=== PATIENT | female | born 1950 | race Caucasian/White ===

== ENCOUNTER → 2017-03-08 | Outpatient (CLI) | payer MEDICARE, BC ==
[2017-03-08 12:18] LABS: Basophils % (A) 0 %; CH 35.5; CHCM 33.9; Eosinophils # (A) 0.1 k/uL (0-0.7); Eosinophils % (A) 1 %; HCT 38.5 % (34.0-46.0); HDW 1.99; HGB 13.1 gm/dL (11.4-16.0); Luc # (Auto) 0.08; Luc % (Auto) 1; Lymphocytes # (A) 0.6 k/uL (1.0-4.8); Lymphocytes % (A) 6 %; MCH 35.8 pg (25.0-35.0); MCHC 34.1 g/dL (31.0-37.0); Macrocytosis Slight; Mean Platelet Volume 7.5; Monocytes # (A) 0.2 k/uL (0-1.0); Monocytes % (A) 2 %; Neutrophils # (A) 8.4 k/uL (1.3-7.7); Neutrophils % (A) 89 %; RBC 3.66 m/uL (3.80-5.40); RDW 11.9 % (11.5-15.5); WBC 9.4 k/uL (3.8-10.6); WBC (Perox) 10.28
[2017-03-08 12:47] LABS: ALT 31 U/L (9-52); AST 30 U/L (14-36); Alkaline Phosphatase 45 U/L (38-126); Anion Gap 11 mmol/L; Blood Urea Nitrogen 20 mg/dL (7-17); Carbon Dioxide 29 mmol/L (22-30); Chloride 96 mmol/L (98-107); Cholesterol 202 mg/dL (<200); Glucose 115 mg/dL (74-99); Non-African American GFR(MDRD) >60 (>60 ml/min/1.73 sqM); Potassium 4.6 mmol/L (3.5-5.1); Sodium 136 mmol/L (137-145); Total Bilirubin 1.4 mg/dL (0.2-1.3); Total Protein 7.3 g/dL (6.3-8.2)
[2017-03-08 13:18] LABS: HDL Cholesterol 120 mg/dL (40-60)
== END | disposition home or self-care (01) ==
LOC: LABWHC1 11:48
PROVIDERS: ATTEND Internal Medicine
DX: E78.5 Hyperlipidemia, unspecified (principal); I10 Essential (primary) hypertension
CPT/HCPCS: 36415; 80053; 80061; 84439; 84443; 85025

== ENCOUNTER 2017-05-31 15:02 | Emergency (ER) | payer MEDICARE, BC ==
[2017-05-31 15:18] VITALS: BP 177/76; PULSE 109; RESP 16; TEMP 97.9
--- NOTE | 2017-05-31 15:35 | ED ---
General Adult HPI - General Chief complaint: Fall Stated complaint: fall/head injury Time Seen by Provider: 05/31/17 15:22 Source: patient, RN notes reviewed Mode of arrival: wheelchair Limitations: no limitations - History of Present Illness Initial comments: Chief complaint and history of present illness is a 67-year-old female here with a complaint of having fallen yesterday after leaving a restaurant. Patient reports that she just tripped falling for under her knees and then felt under her face. She did not get her hands out and time. She presents today with ecchymosis around the left eye. She denies any loss of consciousness at the time. Denies any nausea vomiting or any neuro deficits. - Related Data Home Medications Medication Instructions Recorded Confirmed Albuterol Inhaler [Ventolin Hfa 1 - 2 puff INHALATION RT-Q6H PRN 05/31/17 Inhaler] Calcium Carbonate [Calcium] 600 mg PO DAILY 05/31/17 05/31/17 Calcium Polycarbophil [Fibercon] 625 mg PO DAILY 05/31/17 05/31/17 Enalapril Maleate [Vasotec] 10 mg PO DAILY 05/31/17 05/31/17 Fluticasone/Salmeterol [Advair 1 inhalation PO RT-BID 05/31/17 05/31/17 250-50 Diskus] Previous Rx's Medication Instructions Recorded Ibuprofen [Motrin] 600 mg PO Q6HR PRN #20 tab 05/31/17 Allergies Allergy/AdvReac Type Severity Reaction Status Date / Time No Known Allergies Allergy Verified 05/31/17 15:53 Review of Systems ROS Statement: Those systems with pertinent positive or pertinent negative responses have been documented in the HPI. review of systems no headache and no neck pain. No decrease problems with visual acuity. Patient does wear glasses. She presents with painless mild swelling and ecchymosis around the left eye. No jaw pain teeth are intact. Again denies any neck pain. No chest pain shows breath GI/ problems. No neuro deficits. All systems are reviewed.Past medical problems significant for COPD and hypertension. 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 Remains cancer free. Patient's family history mother had lung cancer. Patient denies any ALLERGIES she does smoke strongly encouraged to stop drink alcohol socially. ROS Other: All systems not noted in ROS Statement are negative. Past Medical History Past Medical History: COPD, Hypertension History of Any Multi-Drug Resistant Organisms: None Reported Past Surgical History: Cholecystectomy Additional Past Surgical History / Comment(s): breast reduction Past Psychological History: No Psychological Hx Reported Smoking Status: Current every day smoker Past Alcohol Use History: Abuse, Daily Past Drug Use History: None Reported General Exam - General Exam Comments Initial Comments: General: The patient is awake and alert, patient stumbled and fell yesterday presents today with ecchymosis around her left eye. Vital signs temperature 97.9 pulse 109 respiratory rate 16 pulse ox 96 and room air blood pressure 177/76. Eye: Pupils are equal, round and reactive to light, extra-ocular movements are intact ; there is normal conjunctiva bilaterally. No signs of icterus. patient has ecchymosis around the left eye. Extraocular movements are within normal limits. Patient is wearing glasses denies any change in visual acuity. No hyphema. No signs of conjunctival hemorrhage. Ears, nose, mouth and throat: There are moist mucous membranes and no oral lesions. teeth are intact. No TMJ pain. Neck: The neck is supple, there is no tenderness,full range of motion and no complaints of any neck pain. Cardiovascular: There is a regular rate and rhythm. No murmur, rub or gallop is appreciated. Respiratory: history of COPD, heavy smoker. No rales at this time. Patient encouraged to stop smoking.. Gastrointestinal: no abdominal pain. No difficulty urinating or bowel movements. Back: denies backache. Musculoskeletal: full range of motion upper and lower extremities. No complaint of pain. Neurological: CN II-XII intact, There are no obvious motor or sensory deficits. Coordination appears grossly intact. Speech is normal.no focal or lateralizing findings. Skin: Skin is warm and dry and no rashes or lesions are noted. Psychiatric: Cooperative, appropriate mood & affect, normal judgment. Limitations: no limitations Course Vital Signs 05/31/17 15:14 Temperature 97.9 F Pulse Rate 109 H Respiratory 16 Rate Blood Pressure 177/76 O2 Sat by Pulse 96 Oximetry Medical Decision Making - Medical Decision Making CT of the facial bones were done and reviewed by the radiologist. His final impression is minimal left supraorbital and left cheek soft tissue prominence can be compatible with contusion. As read by Dr. Pearson the patient will be advised to apply cold compress even today. Then warm compresses starting tomorrow. Ibuprofen for discomfort. She's report any visual acuity changes, headache or neuro deficits to the emergency room or family doctor. Again strongly encouraged to stop smoking. Disposition Clinical Impression: Fall, Contusion of left eyelid and periocular area Disposition: HOME SELF-CARE Condition: Stable Instructions: Fall Prevention for Older Adults (ED), Facial Contusion (ED) Additional Instructions: Continue to apply ice even today. Warm compresses starting tomorrow. Ibuprofen for pain. Report any changes to her family doctor or the emergency room. Stop smoking. Prescriptions: Ibuprofen [Motrin] 600 mg PO Q6HR PRN #20 tab PRN Reason: Pain Referrals: Jenifer Reed MD [Primary Care Provider] - 1-2 days Time of Disposition: 16:08
--- NOTE | 2017-05-31 15:58 | CT ---
EXAMINATION TYPE: CT facial bones wo con DATE OF EXAM: 05/31/2017 COMPARISON: NONE HISTORY: Left sided orbital bruising post fall yesterday CT DLP: 547 mGycm CONTRAST: None The paranasal sinuses are examined in the axial plane at 2 mm thick sections. Reconstructed images i n the coronal plane were obtained. There is dental amalgam scatter artifact Small retention cyst within the anterior right maxillary sinus. The ethmoid air cells are clear. Th e sphenoid sinuses are clear. Left frontal sinus is clear. Right frontal sinus is aplastic. The septum is evaluated. There is septal deviation to the left. The ostiomeatal units are patent. There is a large right ike bullosa. The globes are symmetrical. Intraconal and extraconal fat is unremarkable. Extraocular muscles are no rmal. Lacrimal gland regions appear normal. Some minimal soft tissue swelling is over the left frontal region in left supraorbital region. Some m ild soft tissue swelling is over the left cheek. Maxillary spine is intact. Nasal bones appear intact. Greater wings of sphenoid are normal. Zygomatic arches are intact. IMPRESSIONS: 1. Minimal left supraorbital and left cheek soft tissue prominence can be compatible with contusion.
== END 2017-05-31 16:19 | disposition home or self-care (01) ==
LOC: EC 15:02
DX: S00.12XA Contusion of left eyelid and periocular area, initial encounter (principal); I10 Essential (primary) hypertension; J44.9 Chronic obstructive pulmonary disease, unspecified; F17.200 Nicotine dependence, unspecified, uncomplicated; Z79.51 Long term (current) use of inhaled steroids; Z79.899 Other long term (current) drug therapy; W01.198A Fall on same level from slipping, tripping and stumbling with subsequent striking against other object, initial encounter; Y93.01 Activity, walking, marching and hiking
CPT/HCPCS: 70486; 99283

== ENCOUNTER 2018-07-14 18:06 | Inpatient (IN) | payer MEDICARE, BC ==
[2018-07-14] MEDS ORDERED: FUROSEMIDE 10 MG/ML 4 ML VIAL IV STA (19:02)
--- NOTE | 2018-07-14 19:04 | ED ---
SOB HPI - General Source: patient, family Mode of arrival: wheelchair Limitations: no limitations <Lynnette Conrad - Last Filed: 07/15/18 00:16> <Nasrin Wong - Last Filed: 07/17/18 09:06> - General Chief Complaint: Shortness of Breath Stated Complaint: leg swelling Time Seen by Provider: 07/14/18 18:46 - History of Present Illness Initial Comments: 68-year-old female patient with past medical history significant for chronic alcohol abuse, congestive heart failure, COPD presents to the emergency department today for evaluation of shortness of breath and bilateral lower extremity edema. Patient states that for the last several days she has noticed increase in swelling and difficulty breathing. States she is unable to lie flat. States that she does become dyspneic with any activity. States that she moved up here about 6 months ago and has not yet established with a primary care physician. States she was admitted in May for episode of congestive heart failure and once her medications she was unable to get them refilled. States that she does have a cough with clear sputum production. She denies any fevers or chills. Denies any nasal congestion or sore throat. Patient denies any recent rash, chest pain, abdominal pain, nausea, vomiting, diarrhea, constipation, back pain, numbness, tingling, dizziness, weakness, hematuria, dysuria, urinary urgency, urinary frequency, headache, visual changes, or any other complaints. (Lynnette Conrad) - Related Data Home Medications Medication Instructions Recorded Confirmed No Known Home Medications 07/14/18 07/14/18 Allergies Allergy/AdvReac Type Severity Reaction Status Date / Time No Known Allergies Allergy Verified 07/14/18 18:43 Review of Systems ROS Other: All systems not noted in ROS Statement are negative. <Lynnette Conrad - Last Filed: 07/15/18 00:16> ROS Other: All systems not noted in ROS Statement are negative. <Nasrin Wong - Last Filed: 07/17/18 09:06> ROS Statement: Those systems with pertinent positive or pertinent negative responses have been documented in the HPI. Past Medical History Past Medical History: COPD, Hypertension History of Any Multi-Drug Resistant Organisms: None Reported Past Surgical History: Cholecystectomy Additional Past Surgical History / Comment(s): breast reduction Past Psychological History: No Psychological Hx Reported Smoking Status: Current every day smoker Past Alcohol Use History: Abuse, Daily Past Drug Use History: None Reported <Lynnette Conrad Jacey - Last Filed: 07/15/18 00:16> General Exam Limitations: no limitations General appearance: alert, in no apparent distress, other (This is a well- developed, well-nourished adult female patient in no acute distress. Vital signs upon presentation are temperature 98.1F, pulse 101, respirations 20, blood pressure 178/93, pulse ox 91% on room air.) Eye exam: Present: normal appearance, PERRL, EOMI. Absent: scleral icterus, conjunctival injection, periorbital swelling ENT exam: Present: normal exam, normal oropharynx, mucous membranes moist Respiratory exam: Present: decreased breath sounds (Decreased breath sounds all lung gilmore posteriorly). Absent: normal lung sounds bilaterally, respiratory distress, wheezes, rales, rhonchi, stridor Cardiovascular Exam: Present: normal rhythm, tachycardia, normal heart sounds. Absent: systolic murmur, diastolic murmur, rubs, gallop, clicks GI/Abdominal exam: Present: soft, normal bowel sounds. Absent: distended, tenderness, guarding, rebound, rigid Extremities exam: Present: full ROM, normal capillary refill, other (Bilateral lower extremity edema, 2+ pitting involving the lower legs and feet.). Absent: normal inspection, tenderness, pedal edema, joint swelling, calf tenderness Neurological exam: Present: alert, oriented X3, CN II-XII intact Psychiatric exam: Present: normal affect, normal mood Skin exam: Present: warm, dry, intact, normal color. Absent: rash <Lynnette Conrad M - Last Filed: 07/15/18 00:16> Vital Signs 07/14/18 07/14/18 07/14/18 18:30 19:30 19:40 Temperature 98.1 F Pulse Rate 101 H 91 92 Pulse Rate [ Pulse Oximetery ] Respiratory 20 21 20 Rate Blood Pressure 178/93 187/93 Blood Pressure [Left Arm] O2 Sat by Pulse 91 L Oximetry 07/14/18 07/14/18 07/14/18 20:50 21:10 21:40 Temperature Pulse Rate 92 93 87 Pulse Rate [ Pulse Oximetery ] Respiratory 19 20 15 Rate Blood Pressure 177/99 175/100 180/90 Blood Pressure [Left Arm] O2 Sat by Pulse 96 95 96 Oximetry 07/14/18 07/14/18 07/14/18 22:10 23:10 23:40 Temperature Pulse Rate 93 71 104 H Pulse Rate [ Pulse Oximetery ] Respiratory 19 16 14 Rate Blood Pressure 169/99 172/93 161/92 Blood Pressure [Left Arm] O2 Sat by Pulse 97 97 97 Oximetry 07/14/18 07/15/18 07/15/18 23:58 00:07 01:10 Temperature Pulse Rate 83 85 98 Pulse Rate [ Pulse Oximetery ] Respiratory 19 Rate Blood Pressure 172/85 Blood Pressure [Left Arm] O2 Sat by Pulse 93 L Oximetry 07/15/18 01:20 Temperature 97.9 F Pulse Rate Pulse Rate [ 104 H Pulse Oximetery ] Respiratory 16 Rate Blood Pressure Blood Pressure 187/82 [Left Arm] O2 Sat by Pulse 92 L Oximetry Medical Decision Making - Lab Data Result diagrams: 07/14/18 20:25 07/14/18 20:25 - EKG Data -: EKG Interpreted by Ne - Radiology Data Radiology results: report reviewed, image reviewed <Lynnette Conrad - Last Filed: 07/15/18 00:16> - Lab Data Result diagrams: 07/15/18 09:00 07/16/18 08:12 <Nasrin Wong - Last Filed: 07/17/18 09:06> - Medical Decision Making 60-year-old female patient presented to the emergency department today for evaluation of shortness of breath and bilateral lower extremities swelling. Patient does have history of congestive heart failure and COPD, not currently taking medications for either of these conditions. Patient does admit to chronic alcohol abuse, states she did have alcohol today. Labs reviewed and are relatively unremarkable. BNP 532. Patient is 89-90% oxygen saturation on room air. She does not wear home O2. Patient was given a dose of Lasix here in the emergency department. Upon reevaluation states that she does have some improvement of symptoms but does not feel comfortable being discharged home at this time. Given that she does not have primary care physician to follow-up with an no medications at home until mid to the hospital for COPD exacerbation. We'll continue IV steroids and breathing treatments. (Lynnette Conrad) I was available for consultation in the emergency department. The history and physical exam were done by the midlevel provider. I was consulted for this patient's care. I reviewed the case with the midlevel provider and based on their presentation of the patient, I agree with the assessment, medical decision making and plan of care as documented. (Nasrin Wong) - Lab Data Lab Results 07/14/18 07/14/18 07/14/18 Range/Units 10:30 20:25 20:25 WBC (3.8-10.6) k/uL RBC (3.80-5.40) m/uL Hgb (11.4-16.0) gm/dL Hct (34.0-46.0) % MCV (80.0-100.0) fL MCH (25.0-35.0) pg MCHC (31.0-37.0) g/dL RDW (11.5-15.5) % Plt Count (150-450) k/uL Neutrophils % % Lymphocytes % % Monocytes % % Eosinophils % % Basophils % % Neutrophils # (1.3-7.7) k/uL Lymphocytes # (1.0-4.8) k/uL Monocytes # (0-1.0) k/uL Eosinophils # (0-0.7) k/uL Basophils # (0-0.2) k/uL Macrocytosis PT (9.0-12.0) sec INR (<1.2) APTT (22.0-30.0) sec Sodium 137 (137-145) mmol/L Potassium 3.9 (3.5-5.1) mmol/L Chloride 97 L (98-107) mmol/L Carbon Dioxide 29 (22-30) mmol/L Anion Gap 11 mmol/L BUN 17 (7-17) mg/dL Creatinine 0.47 L (0.52-1.04) mg/dL Est GFR (CKD-EPI)AfAm >90 (>60 ml/min/1.73 sqM) Est GFR (CKD-EPI)NonAf >90 (>60 ml/min/1.73 sqM) Glucose 78 (74-99) mg/dL Calcium 9.1 (8.4-10.2) mg/dL Magnesium (1.6-2.3) mg/dL Total Bilirubin 0.8 (0.2-1.3) mg/dL AST 34 (14-36) U/L ALT 29 (9-52) U/L Alkaline Phosphatase 59 (38-126) U/L Total Creatine Kinase 82 (30-135) U/L CK-MB (CK-2) 2.7 H (0.0-2.4) ng/mL CK-MB (CK-2) Rel Index 3.3 Troponin I <0.012 (0.000-0.034) ng/mL NT-Pro-B Natriuret Pep pg/mL Total Protein 6.8 (6.3-8.2) g/dL Albumin 3.9 (3.5-5.0) g/dL Urine Color Yellow Urine Appearance Cloudy H (Clear) Urine pH 6.0 (5.0-8.0) Ur Specific [place] 1.010 (1.001-1.035) Urine Protein Trace H (Negative) Urine Glucose (UA) Negative (Negative) Urine Ketones Negative (Negative) Urine Blood Negative (Negative) Urine Nitrite Negative (Negative) Urine Bilirubin Negative (Negative) Urine Urobilinogen <2.0 (<2.0) mg/dL Ur Leukocyte Esterase Moderate H (Negative) Urine RBC 1 (0-5) /hpf Urine WBC 14 H (0-5) /hpf Ur Squamous Epith Cells 2 (0-4) /hpf Urine Bacteria Many H (None) /hpf Urine Mucus Occasional H (None) /hpf Serum Alcohol <10 mg/dL HIV-1 Antibody (Non-Reactive) HIV Ag/Ab Interpret HIV p24 Antibody (Non-Reactive) HIV-2 Antibody (Non-Reactive) HIV P24 Antigen (Non-Reactive) 07/14/18 07/14/18 07/14/18 Range/Units 20:25 20:25 20:25 WBC 5.9 (3.8-10.6) k/uL RBC 4.24 (3.80-5.40) m/uL Hgb 13.9 (11.4-16.0) gm/dL Hct 42.2 (34.0-46.0) % MCV 99.4 (80.0-100.0) fL MCH 32.7 (25.0-35.0) pg MCHC 32.9 (31.0-37.0) g/dL RDW 14.5 (11.5-15.5) % Plt Count 199 (150-450) k/uL Neutrophils % 69 % Lymphocytes % 23 % Monocytes % 4 % Eosinophils % 2 % Basophils % 1 % Neutrophils # 4.1 (1.3-7.7) k/uL Lymphocytes # 1.3 (1.0-4.8) k/uL Monocytes # 0.2 (0-1.0) k/uL Eosinophils # 0.1 (0-0.7) k/uL Basophils # 0.0 (0-0.2) k/uL Macrocytosis Slight PT 10.3 (9.0-12.0) sec INR 1.0 (<1.2) APTT 26.9 (22.0-30.0) sec Sodium (137-145) mmol/L Potassium (3.5-5.1) mmol/L Chloride (98-107) mmol/L Carbon Dioxide (22-30) mmol/L Anion Gap mmol/L BUN (7-17) mg/dL Creatinine (0.52-1.04) mg/dL Est GFR (CKD-EPI)AfAm (>60 ml/min/1.73 sqM) Est GFR (CKD-EPI)NonAf (>60 ml/min/1.73 sqM) Glucose (74-99) mg/dL Calcium (8.4-10.2) mg/dL Magnesium (1.6-2.3) mg/dL Total Bilirubin (0.2-1.3) mg/dL AST (14-36) U/L ALT (9-52) U/L Alkaline Phosphatase (38-126) U/L Total Creatine Kinase (30-135) U/L CK-MB (CK-2) (0.0-2.4) ng/mL CK-MB (CK-2) Rel Index Troponin I (0.000-0.034) ng/mL NT-Pro-B Natriuret Pep 532 pg/mL Total Protein (6.3-8.2) g/dL Albumin (3.5-5.0) g/dL Urine Color Urine Appearance (Clear) Urine pH (5.0-8.0) Ur Specific [place] (1.001-1.035) Urine Protein (Negative) Urine Glucose (UA) (Negative) Urine Ketones (Negative) Urine Blood (Negative) Urine Nitrite (Negative) Urine Bilirubin (Negative) Urine Urobilinogen (<2.0) mg/dL Ur Leukocyte Esterase (Negative) Urine RBC (0-5) /hpf Urine WBC (0-5) /hpf Ur Squamous Epith Cells (0-4) /hpf Urine Bacteria (None) /hpf Urine Mucus (None) /hpf Serum Alcohol mg/dL HIV-1 Antibody (Non-Reactive) HIV Ag/Ab Interpret HIV p24 Antibody (Non-Reactive) HIV-2 Antibody (Non-Reactive) HIV P24 Antigen (Non-Reactive) 07/15/18 07/15/18 07/15/18 Range/Units 09:00 09:00 09:00 WBC 3.3 L (3.8-10.6) k/uL RBC 3.93 (3.80-5.40) m/uL Hgb 13.0 (11.4-16.0) gm/dL Hct 39.7 (34.0-46.0) % MCV 101.1 H (80.0-100.0) fL MCH 33.0 (25.0-35.0) pg MCHC 32.6 (31.0-37.0) g/dL RDW 14.4 (11.5-15.5) % Plt Count 184 (150-450) k/uL Neutrophils % % Lymphocytes % % Monocytes % % Eosinophils % % Basophils % % Neutrophils # (1.3-7.7) k/uL Lymphocytes # (1.0-4.8) k/uL Monocytes # (0-1.0) k/uL Eosinophils # (0-0.7) k/uL Basophils # (0-0.2) k/uL Macrocytosis Slight PT (9.0-12.0) sec INR (<1.2) APTT (22.0-30.0) sec Sodium 134 L (137-145) mmol/L Potassium 3.9 (3.5-5.1) mmol/L Chloride 94 L (98-107) mmol/L Carbon Dioxide 32 H (22-30) mmol/L Anion Gap 8 mmol/L BUN 21 H (7-17) mg/dL Creatinine 0.53 (0.52-1.04) mg/dL Est GFR (CKD-EPI)AfAm >90 (>60 ml/min/1.73 sqM) Est GFR (CKD-EPI)NonAf >90 (>60 ml/min/1.73 sqM) Glucose 267 H (74-99) mg/dL Calcium 8.5 (8.4-10.2) mg/dL Magnesium 1.2 L (1.6-2.3) mg/dL Total Bilirubin (0.2-1.3) mg/dL AST (14-36) U/L ALT (9-52) U/L Alkaline Phosphatase (38-126) U/L Total Creatine Kinase (30-135) U/L CK-MB (CK-2) (0.0-2.4) ng/mL CK-MB (CK-2) Rel Index Troponin I (0.000-0.034) ng/mL NT-Pro-B Natriuret Pep pg/mL Total Protein (6.3-8.2) g/dL Albumin (3.5-5.0) g/dL Urine Color Urine Appearance (Clear) Urine pH (5.0-8.0) Ur Specific [place] (1.001-1.035) Urine Protein (Negative) Urine Glucose (UA) (Negative) Urine Ketones (Negative) Urine Blood (Negative) Urine Nitrite (Negative) Urine Bilirubin (Negative) Urine Urobilinogen (<2.0) mg/dL Ur Leukocyte Esterase (Negative) Urine RBC (0-5) /hpf Urine WBC (0-5) /hpf Ur Squamous Epith Cells (0-4) /hpf Urine Bacteria (None) /hpf Urine Mucus (None) /hpf Serum Alcohol mg/dL HIV-1 Antibody Non-Reactive (Non-Reactive) HIV Ag/Ab Interpret HIV p24 Antibody Non-Reactive (Non-Reactive) HIV-2 Antibody Non-Reactive (Non-Reactive) HIV P24 Antigen Non-Reactive (Non-Reactive) - EKG Data EKG Comments: EKG obtained at 1925 shows normal sinus rhythm with a ventricular rate of 88, TX interval 166, QR amish 82, QT 378, QTC 457. No evidence of ST elevation or depression. (Lynnette Conrad) - Radiology Data Two-view x-ray of the chest is obtained. Report was reviewed in its entirety. Impression by Dr. Yip shows probably COPD. No acute lung disease. No change. (Lynnette Conrad) Disposition Decision to Admit Reason: Admit from EC Decision Date: 01/06/19 Decision Time: 00:19 <Lynnette Conrad - Last Filed: 07/15/18 00:16> <Nasrin Wong - Last Filed: 07/17/18 09:06> Clinical Impression: COPD exacerbation Disposition: ADMITTED IP TO THIS HOSP Condition: Serious
--- NOTE | 2018-07-14 20:21 | XR ---
EXAMINATION TYPE: XR chest 2V DATE OF EXAM: 07/14/2018 COMPARISON: 03/07/2017 HISTORY: Leg swelling TECHNIQUE: Frontal and lateral views of the chest are obtained. FINDINGS: There is no heart failure nor confluent pneumonic infiltrate. There is no definite pleural effusion. There are chest leads. Bony thorax is intact. Thoracic aorta is atheromatous. There is pul monary hyperinflation. IMPRESSION: There is probably COPD. No acute lung disease. No change.
[2018-07-14 20:47] LABS: Basophils % (A) 1 %; Eosinophils # (A) 0.1 k/uL (0-0.7); Eosinophils % (A) 2 %; HCT 42.2 % (34.0-46.0); HGB 13.9 gm/dL (11.4-16.0); Lymphocytes # (A) 1.3 k/uL (1.0-4.8); Lymphocytes % (A) 23 %; MCH 32.7 pg (25.0-35.0); MCHC 32.9 g/dL (31.0-37.0); MCV 99.4 fL (80.0-100.0); Macrocytosis Slight; Mean Platelet Volume 7.4; Monocytes # (A) 0.2 k/uL (0-1.0); Monocytes % (A) 4 %; Neutrophils # (A) 4.1 k/uL (1.3-7.7); Neutrophils % (A) 69 %; Platelet Count 199 k/uL (150-450); RBC 4.24 m/uL (3.80-5.40); RDW 14.5 % (11.5-15.5); WBC 5.9 k/uL (3.8-10.6)
[2018-07-14 20:58] LABS: Creatine Kinase 82 U/L (30-135)
[2018-07-14 21:00] LABS: Partial Thromboplastin Time 26.9 sec (22.0-30.0); Prothrombin Time 10.3 sec (9.0-12.0)
[2018-07-14 21:01] LABS: ALT 29 U/L (9-52); AST 34 U/L (14-36); Albumin 3.9 g/dL (3.5-5.0); Alcohol <10 mg/dL; Alkaline Phosphatase 59 U/L (38-126); Anion Gap 11 mmol/L; Blood Urea Nitrogen 17 mg/dL (7-17); Calcium 9.1 mg/dL (8.4-10.2); Carbon Dioxide 29 mmol/L (22-30); Chloride 97 mmol/L (98-107); Glucose 78 mg/dL (74-99); Potassium 3.9 mmol/L (3.5-5.1); Sodium 137 mmol/L (137-145); Total Bilirubin 0.8 mg/dL (0.2-1.3); Total Protein 6.8 g/dL (6.3-8.2)
[2018-07-14 21:12] LABS: Creatine Kinase MB 2.7 ng/mL (0.0-2.4); Troponin I <0.012 ng/mL (0.000-0.034)
[2018-07-14] MEDS ORDERED: methylPREDNISolone SOD SUCCI 125 MG/2 ML VIAL IV STA (22:08)
[2018-07-14] MEDS ORDERED: IPRATROPIUM-ALBUTEROL 3 ML NEB INHALATION STA (22:08)
[2018-07-14] MEDS ORDERED: IPRATROPIUM 0.5 MG/2.5 ML NEBU INHALATION STA (22:26)
[2018-07-14] MEDS ORDERED: ALBUTEROL NEBULIZED 2.5 MG/3 ML INHALATION STA (22:26)
[2018-07-14] MEDS ORDERED: LORazepam 2 MG/ML INJ IV PRN ×2 (23:14)
[2018-07-14] MEDS ORDERED: THIAMINE 100 MG/ML 2 ML VIAL IM STA (23:14)
[2018-07-15] MEDS ORDERED: IPRATROPIUM-ALBUTEROL 3 ML NEB INHALATION PRN (00:13)
[2018-07-15] MEDS: LORazepam 2 MG/ML INJ IV PRN (00:30)
[2018-07-15 02:39] VITALS: BMI 19.3
--- NOTE | 2018-07-15 03:43 | P.HPIM ---
History of Present Illness H&P Date: 07/15/18 The patient is a 68 yo F with a PMH of EtOH abuse, COPD, active smoker, and HTN presented to the ED due to worsening SOB with sharan LE edema. The patient noted that she had moved here from [place] a year ago and did not establish care with a PCP yet. She notes that she was previously taking inhalers but hasn't used them since. She endorsed orthopnea and has been sleeping in a recliner. She denied any previous history of CHF and notes that she has never been prescribed lasix or any other diuretics. She also endorsed a cough productive of white phlegm of a similar duration. She admits to drinking 1 bottle of wine daily and having been admitted to the hospital on multiple occasions due to withdrawal symptoms and several rehab admissions. She otherwise denied any chest pain, fever, chills, nausea, vomiting, abdominal pain, headache, recent travel, or sick contacts. In the ED the patient underwent a comprehensive workup. CXR was consistent w/ COPD; WBC count 5.9; Hgb 13.9; Na 137; K 3.9; BNP 532; Troponin < 0.012; and Serum alcohol level < 10. EKG showed NSR @ 88 bpm with TWI in lead I. Review of Systems Pertinent positives and negatives as discussed in HPI, a complete review of systems was performed and all other systems are negative. Past Medical History Past Medical History: COPD, Hypertension History of Any Multi-Drug Resistant Organisms: None Reported Past Surgical History: Cholecystectomy Additional Past Surgical History / Comment(s): breast reduction Past Anesthesia/Blood Transfusion Reactions: No Reported Reaction Past Psychological History: No Psychological Hx Reported Smoking Status: Current every day smoker Past Alcohol Use History: Abuse, Daily, Heavy Additional Past Alcohol Use History / Comment(s): pt reports consuming a bottle of wine per day Past Drug Use History: None Reported - Past Family History Mother Family Medical History: Congestive Heart Failure (CHF), Hypertension Additional Family Medical History / Comment(s): pt reports mother having mental health issues Father Family Medical History: Cancer Additional Family Medical History / Comment(s): Colon cancer Medications and Allergies Home Medications Medication Instructions Recorded Confirmed Type No Known Home Medications 07/14/18 07/14/18 History Allergies Allergy/AdvReac Type Severity Reaction Status Date / Time No Known Allergies Allergy Verified 01/05/19 18:43 Physical Exam Vitals: Vital Signs Temp Pulse Resp BP Pulse Ox 07/15/18 01:31 98.6 F 07/15/18 01:10 98 19 172/85 93 L 07/15/18 00:07 85 07/14/18 23:58 83 07/14/18 23:40 104 H 14 161/92 97 07/14/18 23:10 71 16 172/93 97 07/14/18 22:10 93 19 169/99 97 07/14/18 21:40 87 15 180/90 96 07/14/18 21:10 93 20 175/100 95 07/14/18 20:50 92 19 177/99 96 07/14/18 19:40 92 20 187/93 07/14/18 19:30 91 21 07/14/18 18:30 98.1 F 101 H 20 178/93 91 L Intake and Output 07/14/18 07/14/18 07/15/18 14:59 22:59 06:59 Other: Weight 45.359 kg 45 kg General: [non toxic], [no distress], [appears older than age], [normal weight] Derm: [no unusual rashes/lesions] [no unusual ecchymoses], [warm], [dry] Head: [atraumatic], [normocephalic], [symmetric] Eyes: [EOMI], [no lid lag], [anicteric sclera], [pupils equal round reactive to light] ENT: [Nose and ears atraumatic], thrush present, [no pharyngeal erythema] Neck: [No thyromegaly], [no cervical lymphadenopathy], [trachea midline], [ supple] Mouth: [no lip lesion], thrush, [mucus membranes moist] Cardiovascular: [S1S2 reg], [no murmur], [positive posterior tibial pulse bilateral], [no edema], [capillary refill less than 2 seconds] Lungs: [Mild bibasilar rales], [no rhonchi, no rales] , [no accessory muscle use ] Abdominal: [soft], [ nontender to palpation], [no guarding], [no appreciable organomegaly], [normal bowel sounds] Ext: [no gross muscle atrophy], [muscle strength 5 out of 5 in all 4 extremities grossly], [no contractures], 2+ LE edema sharan to knees Neuro: [CN II-XI grossly intact], [light touch intact all 4 extremities], [ finger to nose within normal limits] Psych: [Alert], [oriented], [appropriate affect] Results CBC & Chem 7: 07/14/18 20:25 07/14/18 20:25 Labs: Abnormal Lab Results - Last 24 Hours (Table) 07/14/18 07/14/18 Range/Units 20:25 20:25 Chloride 97 L (98-107) mmol/L Creatinine 0.47 L (0.52-1.04) mg/dL CK-MB (CK-2) 2.7 H (0.0-2.4) ng/mL Thrombosis Risk Factor Assmnt - Choose All That Apply Any of the Below Risk Factors Present?: Yes Each Factor Represents 1 point: Abnormal pulmonary function (COPD), Swollen legs (current) Other Risk Factors: Yes Each Risk Factor Represents 2 Points: Age 61-74 years Other congenital or acquired thrombophilia - If yes, enter type in comment: No Thrombosis Risk Factor Assessment Total Risk Factor Score: 4 Thrombosis Risk Factor Assessment Level: Moderate Risk Assessment and Plan Plan: SOB, orthopnea, LE edema, likely newly-diagnosed CHF -Start Lasix 40 mg IVP q12h -I/Os -Daily weights -Fluid restriction -Monitor electrolytes, daily BMPs -Telemetry monitoring -Echocardiogram COPD, not in acute exacerbation -Symbicort, Duonebs Alcohol abuse -CIWA protocol -Thiamine, Folate, MV -Aspiration, Seizure, fall precautions Oral candidiasis -Will give Diflucan -Check HIV HTN -Start Lisinopril 40 mg qd Tobacco abuse -Counseled on importance of cessation -Nicotine patch DVT//GI prophylaxis - Lovenox - No indication for GI prophylaxis The patient is admitted with an anticipated greater than 2 midnight stay for evaluation of SOB. CODE STATUS: Full-code Discussed with: Patient Anticipated discharge date: 07/17/[address]: Home A total of 60 minutes was spent on the care of this complex patient more than 50 % of the time was spent in counseling and care coordination.
[2018-07-15] MEDS ORDERED: FLUCONAZOLE 100 MG TAB PO ONE (04:51)
[2018-07-15] MEDS ORDERED: methylPREDNISolone SOD SUCCI 125 MG/2 ML VIAL IV SCH (06:00)
[2018-07-15] MEDS: THIAMINE 100 MG TAB PO SCH ×3 (06:06→18:24)
[2018-07-15] MEDS: LISINOPRIL 20 MG TAB PO SCH ×2 (06:07→10:17)
[2018-07-15] MEDS ORDERED: FUROSEMIDE 10 MG/ML 4 ML VIAL IV SCH (09:00)
[2018-07-15 09:39] LABS: HCT 39.7 % (34.0-46.0); MCHC 32.6 g/dL (31.0-37.0); MCV 101.1 fL (80.0-100.0); Macrocytosis Slight; Mean Platelet Volume 7.7; Platelet Count 184 k/uL (150-450); RBC 3.93 m/uL (3.80-5.40); RDW 14.4 % (11.5-15.5); WBC 3.3 k/uL (3.8-10.6)
[2018-07-15 09:54] LABS: Anion Gap 8 mmol/L; Blood Urea Nitrogen 21 mg/dL (7-17); Calcium 8.5 mg/dL (8.4-10.2); Carbon Dioxide 32 mmol/L (22-30); Chloride 94 mmol/L (98-107); Glucose 267 mg/dL (74-99); Magnesium 1.2 mg/dL (1.6-2.3); Potassium 3.9 mmol/L (3.5-5.1); Sodium 134 mmol/L (137-145)
[2018-07-15] MEDS: IPRATROPIUM-ALBUTEROL 3 ML NEB INHALATION SCH ×4 (09:57→20:15)
[2018-07-15] MEDS: SYMBICORT 160-4.5 MCG INHALER INHALATION SCH ×2 (09:57→20:15)
[2018-07-15] MEDS: NICOTINE 21MG/24HR PATCH TRANSDERM SCH (10:13)
[2018-07-15] MEDS: ENOXAPARIN 40 MG/0.4 ML SYRINGE SQ SCH (10:15)
[2018-07-15] MEDS: MAGNESIUM SULFATE-D5W PMX 1 GM in DEXTROSE/WATER 1 100ML.BAG IVPB SCH ×2 (11:15→12:26)
[2018-07-15 11:35] LABS: Appearance,Urine Cloudy (Clear); Bacteria,Urine Many /hpf; Bilirubin,Urine Negative (Negative); Blood,Urine Negative (Negative); Color,Urine Yellow; Glucose,Urine (UA) Negative (Negative); Ketones,Urine Negative (Negative); Leukocyte Esterase,Urine Moderate (Negative); Mucus,Urine Occasional /hpf; Nitrite,Urine Negative (Negative); Protein,Urine Trace (Negative); RBC,Urine 1 /hpf (0-5); Squamous Epithelial Cell,Urine 2 /hpf (0-4); Urobilinogen,Urine <2.0 mg/dL (<2.0); WBC,Urine 14 /hpf (0-5)
[2018-07-15] MEDS: MULTIVITAMINS, THERA 1 EACH TAB PO SCH (12:26)
--- NOTE | 2018-07-15 12:54 | P.PN ---
Progress Note - Text Progress Note Date: 07/15/18 Patient was seen and examined, she is feeling much better today. The swelling in her legs is gone down. Shortness of breath is feeling better. He just came back from the bathroom without significant symptoms. No dizziness or chest pain , no nausea or vomiting. I will cut down on diuresis with Lasix to 20 mg daily IV. Awaiting echocardiogram, consult cardiology. When I looked into her mouth to not have any thrush, fluconazole be discontinued. Magnesium was replaced and will be followed in the morning. She continues to be on CIWA protocol, doing well from the perspective of alcohol withdrawal.
[2018-07-16] MEDS: SYMBICORT 160-4.5 MCG INHALER INHALATION SCH ×2 (07:25→20:26)
[2018-07-16] MEDS: IPRATROPIUM-ALBUTEROL 3 ML NEB INHALATION SCH ×4 (07:25→20:26)
[2018-07-16] MEDS: NICOTINE 21MG/24HR PATCH TRANSDERM SCH (08:47)
[2018-07-16] MEDS: LISINOPRIL 20 MG TAB PO SCH (08:47)
[2018-07-16] MEDS: MULTIVITAMINS, THERA 1 EACH TAB PO SCH (08:47)
[2018-07-16] MEDS: ENOXAPARIN 40 MG/0.4 ML SYRINGE SQ SCH (08:47)
[2018-07-16] MEDS: THIAMINE 100 MG TAB PO SCH ×2 (08:47→17:49)
[2018-07-16] MEDS ORDERED: FUROSEMIDE 10 MG/ML 2 ML VIAL IV SCH (09:00)
[2018-07-16] MEDS ORDERED: FLUCONAZOLE 100 MG TAB PO SCH (09:00)
[2018-07-16 09:04] LABS: Anion Gap 6 mmol/L; Blood Urea Nitrogen 25 mg/dL (7-17); Calcium 8.7 mg/dL (8.4-10.2); Carbon Dioxide 37 mmol/L (22-30); Chloride 94 mmol/L (98-107); Glucose 123 mg/dL (74-99); Magnesium 1.8 mg/dL (1.6-2.3); Phosphorus 3.9 mg/dL (2.5-4.5); Potassium 3.1 mmol/L (3.5-5.1); Sodium 137 mmol/L (137-145)
[2018-07-16] MEDS ORDERED: POTASSIUM CHLORIDE ER 20 MEQ TAB.ER PO STA (10:08)
[2018-07-16 10:58] LABS: Cholesterol 156 mg/dL (<200); HDL Cholesterol 57 mg/dL (40-60); LDL Cholesterol,Calculated 82 mg/dL (0-99); Triglycerides 87 mg/dL (<150)
--- NOTE | 2018-07-16 11:10 | P.PN ---
Subjective Progress Note Date: 07/16/18 Principal diagnosis: Dyspnea, new onset HF Patient was seen and examined. No acute events overnight. Patient reports no complaints at this time. No shortness of breath or chest pain. Complains of progressive exertional SOB and LE edema over the past 6 months. Also, states is daily drinker, 1 bottle of wine daily. Objective - Vital Signs Vital signs: Vital Signs Temp 97.3 F L 07/16/18 07:00 Pulse 92 07/16/18 07:38 Resp 15 07/16/18 07:00 BP 135/79 07/16/18 07:00 Pulse Ox 99 07/16/18 07:00 Intake & Output 07/15/18 07/16/18 07/16/18 18:59 06:59 18:59 Intake Total 200 Balance 200 Intake: Intake, IV Titration 200 Amount Magnesium Sulfate-D5w Pmx 200 1 gm In Dextrose/Water 1 100ml.bag @ 100 mls/hr IVPB Q1H [facility] Rx#: [id number] Other: # Voids 1 - Exam General: [non toxic], [no distress], [appears at stated age] Derm: [warm], [dry] Head: [atraumatic], [normocephalic], [symmetric] Eyes: [EOMI], [no lid lag], [anicteric sclera] Mouth: [no lip lesion], [mucus membranes moist] Cardiovascular: [S1S2 reg], [no murmur], [positive DP pulse bilateral], [chest wall non tender to palpation] Lungs: [Decreased BS bilateral], [no rhonchi, no rales] , [no accessory muscle use] Abdominal: [soft], [ nontender to palpation], [no guarding], [no appreciable organomegaly] Ext: [no gross muscle atrophy], [no edema], [no contractures] Neuro: [no focal neuro deficits] Psych: [Alert], [oriented], [appropriate affect] - Labs CBC & Chem 7: 07/15/18 09:00 07/16/18 08:12 Labs: Abnormal Lab Results - Last 24 Hours (Table) 07/14/18 07/16/18 Range/Units 10:30 08:12 Potassium 3.1 L (3.5-5.1) mmol/L Chloride 94 L (98-107) mmol/L Carbon Dioxide 37 H (22-30) mmol/L BUN 25 H (7-17) mg/dL Glucose 123 H (74-99) mg/dL Urine Appearance Cloudy H (Clear) Urine Protein Trace H (Negative) Ur Leukocyte Esterase Moderate H (Negative) Urine WBC 14 H (0-5) /hpf Urine Bacteria Many H (None) /hpf Urine Mucus Occasional H (None) /hpf Assessment and Plan Assessment: Assessment and Plan 1. Dyspnea: Likely new onset HF given symptoms of SOB, LE edema and orthopnea. Start Lisinopril 40 mg PO QD. Ins and Outs. Daily Weights. Telemetry monitoring. O2 per NC to maintain O2 sat > 92 %. FU Echocardiogram, Cardiology consult 2. Hypokalemia: K 3.1. Possibly from Albuterol use. Will give JODIE PO 40 mEq x 1. 3. Metabolic alkalosis: HCO3 37. Likely due to Lasix IV, which has been discontinued. Daily BMP. 4. Prerenal azotemia: BUN 25, Cr within normal limits. Likely due to Lasix IV, which has been discontinued. Encourage PO hydration. Daily BMP. 5. COPD: Stable. Continue DuoNeb QID Scheduled and PRN. Start Symbicort 2 puff BID. 6. EtOH abuse: CIWA protocol. Ativan IV PRN for CIWA > 8. Start MVI 1 tab PO QD , Thiamine 100 mg PO BID. Seizure, Aspiration and Fall precautions. 7. Hypertension: BP 135/79. Continue Lisinopril 40 mg PO QD. Monitor vitals, adjust medications as necessary. 8. Tobacco use: Nicotine patch. 9. DVT/GI Prophylaxis: Lovenox 40 mg SUBCUT QD.
[2018-07-16 12:28] LABS: HIV 1 AB Non-Reactive (Non-Reactive); HIV AB P24 Non-Reactive (Non-Reactive); HIV P24 AG Non-Reactive (Non-Reactive)
--- NOTE | 2018-07-16 14:18 | P.CRDCN ---
History of Present Illness History of present illness: This is a pleasant 68-year-old female past medical history significant for COPD, hypertension, chronic nicotine dependence and daily intake of one bottle of wine per day. 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 We have asked to see her in consultation for symptoms of heart failure. She states for approximately the previous 6 months she has noticed shortness of breath and lower extremity edema. Over the previous few days the shortness of breath has been much worse and she is unable to lie flat at night without feeling extremely dyspneic. She also states getting up and moving around at home has become increasingly difficult secondary to shortness of breath. She also complains of a cough with clear sputum. She denies symptoms of chest pain, dizziness, palpitations, nausea, vomiting or diaphoresis. She has been started on IV Lasix. She recently moved here from [place] and has not established care with anybody in the area. EKG reveals sinus mechanism, inferior Q waves noted and poor R-wave progression with evidence of old anterior wall CA. Chest x-ray reveals hyperinflation possibly COPD. No acute cardiopulmonary process. Laboratory data reviewed, WBC 3.3, sodium 137, potassium 3.1, magnesium 1.8 up from 1.2 on admission, cardiac enzymes negative 1, NTproBNP 532. Prior to admission she took no daily medications. At the time of my exam: CONSTITUTIONAL: Denies fever. Denies chills. EYES: Denies blurred vision. Denies vision changes. Denies eye pain. EARS, NOSE, MOUTH & THROAT: Denies headache. Denies sore throat. Denies ear pain. CARDIOVASCULAR: Denies chest pain. Denies shortness of breath. Denies orthopnea. Denies PND. Denies palpitations. RESPIRATORY: Denies cough. GASTROINTESTINAL: Denies abdominal pain. Denies diarrhea. Denies constipation. Denies nausea. Denies vomiting. MUSCULOSKELETAL: Denies myalgias. INTEGUMENTARY: Denies pruitis. Denies rash. NEUROLOGIC: Denies numbness. Denies tingling. Denies weakness. PSYCHIATRIC: Denies anxiety. Denies depression. ENDOCRINE: Denies fatigue. Denies weight change. Denies polydipsia. Denies polyurina. GENITOURINARY: Denies burning, hematuria or urgency with micturation. HEMATOLOGIC: Denies history of anemia. Denies bleeding. Blood pressure 135/79 heart rate 76 afebrile maintaining oxygen saturation on nasal cannula GENERAL: This is a 68-year-old female in no apparent distress at the time of my examination. HEENT: Head is atraumatic, normocephalic. Pupils are equal, round. Sclerae anicteric. Conjunctivae are clear. Mucous membranes of the mouth are moist. Neck is supple. There is no jugular venous distention. No carotid bruit is heard. LUNGS: Faint expiratory wheeze, no rales or rhonchi. Diminished bilaterally. No chest wall tenderness is noted on palpation or with deep breathing. HEART: Regular rate and rhythm without murmurs, rubs or gallops. S1 and S2 heard. ABDOMEN: Soft, nontender. Bowel sounds are heard. No organomegaly noted. EXTREMITIES: Trace bilateral lower extremity nonpitting peripheral edema and no calf tenderness noted. VASCULAR: Radial and dorsalis pedis pulses palpated, no evidence of clubbing. NEUROLOGIC: Patient is awake, alert and oriented x3. ASSESSMENT Hypertension, lisinopril 40 mg daily started on admission COPD Hypokalemia Chronic daily alcohol abuse Chronic nicotine dependence PLAN Clinically she does not appear to be in heart failure. Lungs clear, normal NTproBNP, non-pitting trace edema and no fluid overload on chest xray. Discontinue lasix. Symptoms suggestive of COPD. Continue lisinopril for elevated blood pressures. Smoking and alcohol cessation recommended. Echo has been obtained and will be reviewed. Thank you kindly for this consultation. Nurse Practitioner note has been reviewed, I agree with a documented findings and plan of care. Patient was seen and examined. Past Medical History Past Medical History: COPD, Hypertension History of Any Multi-Drug Resistant Organisms: None Reported Past Surgical History: Cholecystectomy Additional Past Surgical History / Comment(s): breast reduction Past Anesthesia/Blood Transfusion Reactions: No Reported Reaction Past Psychological History: No Psychological Hx Reported Smoking Status: Current every day smoker Past Alcohol Use History: Abuse, Daily, Heavy Additional Past Alcohol Use History / Comment(s): pt reports consuming a bottle of wine per day Past Drug Use History: None Reported - Past Family History Mother Family Medical History: Congestive Heart Failure (CHF), Hypertension Additional Family Medical History / Comment(s): pt reports mother having mental health issues Father Family Medical History: Cancer Additional Family Medical History / Comment(s): Colon cancer Medications and Allergies Home Medications Medication Instructions Recorded Confirmed Type No Known Home Medications 07/14/18 07/14/18 History Allergies Allergy/AdvReac Type Severity Reaction Status Date / Time No Known Allergies Allergy Verified 07/14/18 18:43 Physical Exam Vitals: Vital Signs Temp Pulse Pulse Resp BP Pulse Ox 07/16/18 07:38 92 07/16/18 07:26 90 07/16/18 07:00 97.3 F L 76 15 135/79 99 07/16/18 01:20 98.0 F 88 20 128/67 98 07/15/18 20:15 89 95 07/15/18 19:35 98.0 F 93 16 135/75 95 07/15/18 16:03 88 07/15/18 16:00 103 H 16 07/15/18 15:53 84 07/15/18 13:12 97.9 F 103 H 139/78 92 L 07/15/18 13:10 90 07/15/18 12:59 88 Intake and Output 07/15/18 07/16/18 07/16/18 22:59 06:59 14:59 Other: # Voids 1 Results 07/15/18 09:00 07/16/18 08:12 Comprehensive Metabolic Panel 07/16/18 Range/Units 08:12 Sodium 137 (137-145) mmol/L Potassium 3.1 L (3.5-5.1) mmol/L Chloride 94 L (98-107) mmol/L Carbon Dioxide 37 H (22-30) mmol/L BUN 25 H (7-17) mg/dL Creatinine 0.57 (0.52-1.04) mg/dL Glucose 123 H (74-99) mg/dL Calcium 8.7 (8.4-10.2) mg/dL Current Medications Generic Name Dose Route Start Last Admin Trade Name Freq PRN Reason Stop Dose Admin Albuterol/Ipratropium 3 ml 07/15/18 00:13 Duoneb 0.5 Mg-3 Mg/3 Ml Soln INHALATION RT-Q4H PRN Shortness Of Breath Or Wheezing Albuterol/Ipratropium 3 ml 07/15/18 08:00 07/16/18 07:25 Duoneb 0.5 Mg-3 Mg/3 Ml Soln INHALATION 3 ml RT-QID PARRIS Administration Budesonide/Formoterol Fumarate 2 puff 07/15/18 08:00 07/16/18 07:25 Symbicort 160-4.5 Mcg Inhaler INHALATION 2 puff RT-BID PARRIS Administration Enoxaparin Sodium 40 mg 07/15/18 09:00 07/16/18 08:47 Lovenox SQ 40 mg DAILY PARRIS Administration Lisinopril 40 mg 07/15/18 03:39 07/16/18 08:47 Zestril PO 40 mg DAILY PARRIS Administration Lorazepam 1 mg 07/14/18 23:14 07/15/18 00:30 Ativan IV 1 mg Q2HR PRN Administration CIWA 8 or 9 Lorazepam 1 mg 07/14/18 23:14 Ativan IV Q1HR PRN CIWA 10 to 15 Lorazepam 2 mg 07/14/18 23:14 Ativan IV 07/16/18 23:14 Q10M PRN CIWA 16 or higher Multivitamins 1 each 07/15/18 12:00 07/16/18 08:47 Theragran PO 1 each DAILY@1200 PARRIS Administration Nicotine 1 patch 07/15/18 09:00 07/16/18 08:47 Habitrol 21mg/24hr Patch TRANSDERM 1 patch DAILY PARRIS Administration Sodium Chloride 10 ml 07/15/18 09:00 07/16/18 08:48 Saline Flush IV 10 ml BID APRRIS Administration Thiamine HCl 100 mg 07/14/18 17:00 07/16/18 08:47 Vitamin B-1 PO 100 mg BID@1200,1700 PARRIS Administration Intake and Output 07/15/18 07/16/18 07/16/18 22:59 06:59 14:59 Other: # Voids 1 07/15/18 09:00 07/16/18 08:12
[2018-07-16] MEDS: LORazepam 2 MG/ML INJ IV PRN (21:11)
--- NOTE | 2018-07-17 07:30 | ECHOF ---
Referral Reason:SOB, LE edema, orthopnea MEASUREMENTS -------- HEIGHT: 152.4 cm WEIGHT: 44.9 kg BP: 128/67 IVSd: 1.3 cm (0.6 - 1.1) LVIDd: 2.0 cm (3.9 - 5.3) LVPWd: 1.1 cm (0.6 - 1.1) IVSs: 1.7 cm LVIDs: 1.3 cm LVPWs: 1.2 cm Ao Diam: 3.2 cm (2.0 - 3.7) AV Cusp: 1.8 cm (1.5 - 2.6) LA Diam: 3.5 cm (2.7 - 3.8) MV EXCURSION: 12.842 mm (> 18.000) MV EF SLOPE: 35 mm/s (70 - 150) EPSS: 1.1 cm MV E Yang: 0.50 m/s MV DecT: 91 ms MV A Yang: 1.19 m/s MV E/A Ratio: 0.42 RAP: 5.00 mmHg RVSP: 30.29 mmHg FINDINGS -------- Sinus rhythm. This was a technically good study. The left ventricular size is normal. Left ventricular wall thickness is normal. Overall left vent ricular systolic function is low-normal with, an EF between 50 - 55 %. The RV was not well visualized. The left atrial size is normal. The right atrium is normal in size. Aortic valve is trileaflet and is mildly thickened. The mitral valve leaflets are mildly thickened. Mild mitral regurgitation is present. Mild tricuspid regurgitation present. The right ventricular systolic pressure, as measured by Doppl er, is 30.29mmHg. Pulmonic valve appears structurally normal. The aortic root size is normal. Normal inferior vena cava with normal inspiratory collapse consistent with estimated right atrial pre ssure of 5 mmHg. The pericardium is normal. CONCLUSIONS -------- 1. Sinus rhythm. 2. This was a technically good study. 3. The left ventricular size is normal. 4. Left ventricular wall thickness is normal. 5. The RV was not well visualized. 6. The left atrial size is normal. 7. The right atrium is normal in size. 8. Aortic valve is trileaflet and is mildly thickened. 9. The mitral valve leaflets are mildly thickened. 10. Mild mitral regurgitation is present. 11. Mild tricuspid regurgitation present. 12. The right ventricular systolic pressure, as measured by Doppler, is 30.29mmHg. 13. Pulmonic valve appears structurally normal. 14. The aortic root size is normal. 15. Normal inferior vena cava with normal inspiratory collapse consistent with estimated right atrial pressure of 5 mmHg. 16. The pericardium is normal. PERSONAL CARE WORKER: Maura Moser RDCS
[2018-07-17] MEDS: THIAMINE 100 MG TAB PO SCH ×2 (08:13→16:47)
[2018-07-17] MEDS: LISINOPRIL 20 MG TAB PO SCH (08:13)
[2018-07-17] MEDS: ENOXAPARIN 40 MG/0.4 ML SYRINGE SQ SCH (08:13)
[2018-07-17] MEDS: NICOTINE 21MG/24HR PATCH TRANSDERM SCH (08:13)
[2018-07-17] MEDS: MULTIVITAMINS, THERA 1 EACH TAB PO SCH (08:13)
[2018-07-17] MEDS: IPRATROPIUM-ALBUTEROL 3 ML NEB INHALATION SCH ×3 (09:03→16:13)
[2018-07-17] MEDS: SYMBICORT 160-4.5 MCG INHALER INHALATION SCH (09:03)
[2018-07-17 09:36] LABS: Anion Gap 6 mmol/L; Blood Urea Nitrogen 26 mg/dL (7-17); Calcium 8.8 mg/dL (8.4-10.2); Carbon Dioxide 34 mmol/L (22-30); Chloride 99 mmol/L (98-107); Glucose 92 mg/dL (74-99); Magnesium 1.5 mg/dL (1.6-2.3); Potassium 4.4 mmol/L (3.5-5.1); Sodium 139 mmol/L (137-145)
[2018-07-17] MEDS ORDERED: predniSONE 50 MG TAB PO SCH (11:00)
--- NOTE | 2018-07-17 11:03 | P.DS ---
Providers Date of admission: 07/15/18 09:15 Expected date of discharge: 07/17/18 Attending physician: Jorge Dugan MD Consults: 07/15/18 12:54 Consult Physician Routine Consulting Provider: Yasir Cornell Consult Reason/Comments: chf Do you want consulting provider notified?: Yes Primary care physician: Stated None - Discharge Diagnosis(es) (1) Metabolic alkalosis Current Visit: Yes Status: Acute (2) Prerenal azotemia Current Visit: Yes Status: Acute (3) Alcohol abuse Current Visit: Yes Status: Acute (4) Hypertension Current Visit: Yes Status: Acute (5) Tobacco use Current Visit: Yes Status: Acute (6) COPD exacerbation Current Visit: Yes Status: Acute Hospital Course: The patient is a 68 yo F with a PMH of EtOH abuse, COPD, active smoker, and HTN presented to the ED due to worsening SOB with sharan LE edema. The patient noted that she had moved here from [place] a year ago and did not establish care with a PCP yet. She notes that she was previously taking inhalers but hasn't used them since. She endorsed orthopnea and has been sleeping in a recliner. She denied any previous history of CHF and notes that she has never been prescribed lasix or any other diuretics. She also endorsed a cough productive of white phlegm of a similar duration. She admits to drinking 1 bottle of wine daily and having been admitted to the hospital on multiple occasions due to withdrawal symptoms and several rehab admissions. She otherwise denied any chest pain, fever, chills, nausea, vomiting, abdominal pain, headache, recent travel, or sick contacts. Her shortness of breath was thought to be secondary to COPD, and new onset heart failure given her symptoms of dyspnea, lower extremity edema and orthopnea. She was initially started on Lasix IV push was discontinued by cardiology. Cardiology was consulted and recommended obtaining an echocardiogram. Echocardiogram showed an ejection fraction of 55% with no wall motion abnormalities. Cardiology recommended optimal treatment of COPD. She was given oxygen by nasal cannula to maintain an oxygen saturation greater than 92%. Patient was noted to be hypokalemic with a potassium of 3.1 during admission. Her potassium was replaced. This was thought to be secondary to Lasix use. Patient was also noted to have metabolic alkalosis with a bicarbonate of 37. This is thought to be secondary to Lasix use. With regard to her COPD, patient was given DuoNeb 4 times a day scheduled and as needed for shortness of breath and wheezing. She was started on Symbicort 2 puffs twice a day. She was given prednisone to complete a five-day course. Patient was seen and examined prior to discharge. No acute events overnight. Patient reports great improvement in her breathing. She is able to take a shower this morning and ambulate to the bathroom from her bed. Patient is requesting a rolling walker on discharge. Patient is also requesting home oxygen and a nebulizer machine. She continues to report cough, states is due to being a smoker. She denies any chest pain or palpitations. General: [non toxic], [no distress], [appears at stated age] Derm: [warm], [dry] Head: [atraumatic], [normocephalic], [symmetric] Eyes: [EOMI], [no lid lag], [anicteric sclera] Mouth: [no lip lesion], [mucus membranes moist] Cardiovascular: [S1S2 reg], [no murmur], [positive DP pulse bilateral], [chest wall non tender to palpation] Lungs: [Decreased BS bilateral], [no rhonchi, no rales] , [no accessory muscle use] Abdominal: [soft], [ nontender to palpation], [no guarding], [no appreciable organomegaly] Ext: [no gross muscle atrophy], [no edema], [no contractures] Neuro: [no focal neuro deficits] Psych: [Alert], [oriented], [appropriate affect] Assessment and Plan 1. Dyspnea: Less likely HF given clear CXR and normal BNP of 532. Echocardiogram shows EF 55%. Cardiology consulted, recommended optimizing COPD treatment. 2. Metabolic alkalosis: HCO3 37 to 34. Likely due to Lasix IV, which has been discontinued. Daily BMP. 3. Prerenal azotemia: BUN 25 to 26, Cr within normal limits. Likely due to Lasix IV, which has been discontinued. Encourage PO hydration. Daily BMP. 4. COPD exacerbation: Continue DuoNeb QID Scheduled and PRN. Continue Symbicort 2 puff BID. Will start Prednisone 50 mg PO QD for a total of 5 days. DME for nebulizer machine. FU home O2 test 5. EtOH abuse: CIWA protocol. Ativan IV PRN for CIWA > 8. Start MVI 1 tab PO QD , Thiamine 100 mg PO BID. Seizure, Aspiration and Fall precautions. 6. Hypertension: BP 136/80. Continue Lisinopril 40 mg PO QD. Monitor vitals, adjust medications as necessary. 7. Tobacco use: Nicotine patch. 8. DVT/GI Prophylaxis: Lovenox 40 mg SUBCUT QD. Patient possibly to be discharged today. Needs home O2 test. DME forms signed for nebulizer machine and rolling walker. Pertinent Studies: Echocardiogram Patient Condition at Discharge: Stable Plan - Discharge Summary Discharge Rx Participant: Yes New Discharge Prescriptions: New Budesonide-Formot 160-4.5 Mcg [Symbicort 160-4.5 Mcg Inhaler] 2 puff INHALATION RT-BID #1 inh Ipratropium-Albuterol Nebulize [Duoneb 0.5 mg-3 mg/3 ml Soln] 3 ml INHALATION RT-Q4H PRN #90 ampul.neb PRN Reason: Shortness Of Breath Or Wheezing Lisinopril [Zestril] 40 mg PO DAILY #60 tab predniSONE 50 mg PO DAILY #4 tab Discharge Medication List Budesonide-Formot 160-4.5 Mcg [Symbicort 160-4.5 Mcg Inhaler] 2 puff INHALATION RT-BID #1 inh 07/17/18 [Rx] Ipratropium-Albuterol Nebulize [Duoneb 0.5 mg-3 mg/3 ml Soln] 3 ml INHALATION RT -Q4H PRN #90 ampul.neb 07/17/18 [Rx] Lisinopril [Zestril] 40 mg PO DAILY #60 tab 07/17/18 [Rx] predniSONE 50 mg PO DAILY #4 tab 07/17/18 [Rx] Follow up Appointment(s)/Referral(s): None,Stated [Primary Care Provider] - 1-2 days Jenifer Reed MD [STAFF PHYSICIAN] - 1 Week Activity/Diet/Wound Care/Special Instructions: Diet: Low salt Please follow-up with your primary care provider within 1-2 days of discharge. Please follow-up with pulmonology Dr. Cartwright within 1 week of discharge. Please take all medications as advised. Discharge Disposition: HOME SELF-CARE
[2018-07-17] MEDS: MAGNESIUM SULFATE-D5W PMX 1 GM in DEXTROSE/WATER 1 100ML.BAG IVPB SCH ×2 (11:04→12:21)
[2018-07-17 16:48] VITALS: BP 157/80; PULSE 96; RESP 16; TEMP 97.3
== END 2018-07-17 17:11 | disposition home health service (06) | DRG 191 ==
LOC: EC 18:06 → 4SSUR 07-15 00:20 → INTOOBSV 07-15 00:20 → OBSVTOIN 07-15 09:15
PROVIDERS: ADMIT Internal Medicine; ATTEND Internal Medicine
DX: J44.1 Chronic obstructive pulmonary disease with (acute) exacerbation (principal); B37.0 Candidal stomatitis; E87.3 Alkalosis; E87.6 Hypokalemia; F17.200 Nicotine dependence, unspecified, uncomplicated; T50.1X5A Adverse effect of loop [high-ceiling] diuretics, initial encounter; R79.89 Other specified abnormal findings of blood chemistry; I10 Essential (primary) hypertension; F10.10 Alcohol abuse, uncomplicated; Z90.49 Acquired absence of other specified parts of digestive tract; Z71.6 Tobacco abuse counseling; Z80.0 Family history of malignant neoplasm of digestive organs; Z82.49 Family history of ischemic heart disease and other diseases of the circulatory system
CPT/HCPCS: 36415; 71046; 80048; 80053; 80061; 80320; 81001; 82550; 82553; 83735; 83880; 84100; 84484; 85025; 85027; 85610; 85730; 87324; 87390; 93005; 93306; 94640; 94760; 96372; 96374; 96375; 99285

== ENCOUNTER 2018-07-26 05:22 | Emergency (ER) | payer MEDICARE, BC ==
[2018-07-26 05:31] VITALS: TEMP 97.8
[2018-07-26] MEDS ORDERED: LISINOPRIL 20 MG TAB PO STA (05:36)
[2018-07-26 06:32] LABS: Anion Gap 9 mmol/L; Blood Urea Nitrogen 13 mg/dL (7-17); Calcium 9.4 mg/dL (8.4-10.2); Carbon Dioxide 30 mmol/L (22-30); Chloride 103 mmol/L (98-107); Glucose 91 mg/dL (74-99); Sodium 142 mmol/L (137-145)
[2018-07-26 06:44] LABS: Basophils % (A) 1 %; Eosinophils # (A) 0.1 k/uL (0-0.7); Eosinophils % (A) 1 %; HCT 42.1 % (34.0-46.0); HGB 13.2 gm/dL (11.4-16.0); Lymphocytes # (A) 0.9 k/uL (1.0-4.8); Lymphocytes % (A) 20 %; MCH 32.6 pg (25.0-35.0); MCHC 31.4 g/dL (31.0-37.0); MCV 103.7 fL (80.0-100.0); Macrocytosis Slight; Mean Platelet Volume 7.2; Monocytes # (A) 0.2 k/uL (0-1.0); Monocytes % (A) 4 %; Neutrophils # (A) 3.3 k/uL (1.3-7.7); Neutrophils % (A) 73 %; Platelet Count 325 k/uL (150-450); RBC 4.06 m/uL (3.80-5.40); RDW 14.6 % (11.5-15.5); WBC 4.5 k/uL (3.8-10.6)
[2018-07-26 07:16] VITALS: BP 177/76; PULSE 72; RESP 16
--- NOTE | 2018-07-26 07:54 | ED ---
General Adult HPI - General Chief complaint: Recheck/Abnormal Lab/Rx Stated complaint: hypertension Time Seen by Provider: 07/26/18 05:29 Source: patient, RN notes reviewed Mode of arrival: ambulatory Limitations: no limitations - History of Present Illness Initial comments: 68-year-old female presenting for evaluation of erythema and swelling to the right leg, concern for elevated blood pressure, and medication refill. Patient has been out of her antihypertensive medication for the past one month. She states she cannot afford this medication. Second complaint is swelling and erythema in the right leg which is been ongoing for the past month. No fever chills. No chest pain or dyspnea. No vomiting or diarrhea. - Related Data Home Medications Medication Instructions Recorded Confirmed Acetaminophen Tab [Tylenol Tab] 1,000 mg PO Q6HR PRN 07/26/18 07/26/18 Previous Rx's Medication Instructions Recorded Albuterol Inhaler [Ventolin Hfa 1 - 2 puff INHALATION RT-Q6H PRN 07/17/18 Inhaler] #1 inhaler Budesonide-Formot 160-4.5 Mcg 2 puff INHALATION RT-BID #1 inh 07/17/18 [Symbicort 160-4.5 Mcg Inhaler] Ipratropium-Albuterol Nebulize 3 ml INHALATION RT-Q4H PRN #90 07/17/18 [Duoneb 0.5 mg-3 mg/3 ml Soln] ampul.neb Lisinopril [Zestril] 40 mg PO DAILY #60 tab 07/17/18 predniSONE 50 mg PO DAILY #4 tab 07/17/18 Allergies Allergy/AdvReac Type Severity Reaction Status Date / Time No Known Allergies Allergy Verified 07/26/18 06:47 Review of Systems ROS Statement: Those systems with pertinent positive or pertinent negative responses have been documented in the HPI. ROS Other: All systems not noted in ROS Statement are negative. Past Medical History Past Medical History: COPD, Hypertension History of Any Multi-Drug Resistant Organisms: None Reported Past Surgical History: Cholecystectomy Additional Past Surgical History / Comment(s): breast reduction Past Anesthesia/Blood Transfusion Reactions: No Reported Reaction Past Psychological History: No Psychological Hx Reported Smoking Status: Current every day smoker Past Alcohol Use History: Abuse, Daily, Heavy Past Drug Use History: None Reported - Past Family History Mother Family Medical History: Congestive Heart Failure (CHF), Hypertension Additional Family Medical History / Comment(s): pt reports mother having mental health issues Father Family Medical History: Cancer Additional Family Medical History / Comment(s): Colon cancer General Exam Limitations: no limitations General appearance: alert, in no apparent distress Head exam: Present: atraumatic, normocephalic Eye exam: Present: normal appearance, PERRL Respiratory exam: Present: normal lung sounds bilaterally. Absent: respiratory distress, wheezes Cardiovascular Exam: Present: regular rate, normal rhythm GI/Abdominal exam: Present: soft. Absent: distended, tenderness Extremities exam: Present: pedal edema, other (Edema and erythema of the right lower extremity, mid calf to ankle. No crepitus. Mild induration.) Neurological exam: Present: alert, oriented X3, CN II-XII intact. Absent: motor sensory deficit Psychiatric exam: Present: normal affect, normal mood Skin exam: Present: warm, dry. Absent: cyanosis Course Vital Signs 07/26/18 07/26/18 05:27 07:15 Temperature 97.8 F Pulse Rate 74 72 Respiratory 20 16 Rate Blood Pressure 198/82 177/76 O2 Sat by Pulse 98 98 Oximetry - Reevaluation(s) Reevaluation #1: 07/26/18 0640 Patient seen and evaluated initially by Dr. Nazario. Prescriptions written by Dr. Nazario. Medical Decision Making - Medical Decision Making 60-year-old female presenting with hypertension, need for medication refill, and cellulitis of the right lower extremity. Patient given a dose of her antihypertensive medication the emergency department. Blood pressure is down trending. We did arrange through social work for the patient to receive her prescriptions at discounted rate. Patient is agreeable with this plan. She is prescribed Bactrim and Zestril. Diagnosis: Hypertension, medication refill, cellulitis. - Lab Data Result diagrams: 07/26/18 05:32 07/26/18 05:32 Lab Results 07/26/18 07/26/18 Range/Units 05:32 05:32 WBC 4.5 (3.8-10.6) k/uL RBC 4.06 (3.80-5.40) m/uL Hgb 13.2 (11.4-16.0) gm/dL Hct 42.1 (34.0-46.0) % MCV 103.7 H (80.0-100.0) fL MCH 32.6 (25.0-35.0) pg MCHC 31.4 (31.0-37.0) g/dL RDW 14.6 (11.5-15.5) % Plt Count 325 (150-450) k/uL Neutrophils % 73 % Lymphocytes % 20 % Monocytes % 4 % Eosinophils % 1 % Basophils % 1 % Neutrophils # 3.3 (1.3-7.7) k/uL Lymphocytes # 0.9 L (1.0-4.8) k/uL Monocytes # 0.2 (0-1.0) k/uL Eosinophils # 0.1 (0-0.7) k/uL Basophils # 0.0 (0-0.2) k/uL Macrocytosis Slight Sodium 142 (137-145) mmol/L Potassium 4.0 (3.5-5.1) mmol/L Chloride 103 (98-107) mmol/L Carbon Dioxide 30 (22-30) mmol/L Anion Gap 9 mmol/L BUN 13 (7-17) mg/dL Creatinine 0.48 L (0.52-1.04) mg/dL Est GFR (CKD-EPI)AfAm >90 (>60 ml/min/1.73 sqM) Est GFR (CKD-EPI)NonAf >90 (>60 ml/min/1.73 sqM) Glucose 91 (74-99) mg/dL Calcium 9.4 (8.4-10.2) mg/dL Disposition Clinical Impression: Encounter for medication refill, Cellulitis, Hypertension Disposition: HOME SELF-CARE Condition: Fair Instructions: Hypertension (ED), Cellulitis (ED) Is patient prescribed a controlled substance at d/c from ED?: No Referrals: None,Stated [Primary Care Provider] - 1-2 days Claudia Dowd MD [STAFF PHYSICIAN] - 1-2 days Time of Disposition: 07:54
== END 2018-07-26 08:14 | disposition home or self-care (01) ==
LOC: EC 05:22
DX: I10 Essential (primary) hypertension (principal); L03.115 Cellulitis of right lower limb; F17.200 Nicotine dependence, unspecified, uncomplicated; Z90.49 Acquired absence of other specified parts of digestive tract; Z98.890 Other specified postprocedural states
CPT/HCPCS: 36415; 80048; 85025; 99283